=== PATIENT | female | born 1930 | race Hispanic/Latino ===

== ENCOUNTER 2018-03-06 05:36 | Day surgery (SDC) | payer OTHER, MEDICARE ==
[2018-03-06] VITALS (8 sets, daily range): BP systolic 115–159; BP diastolic 39–67
[~2018-03-06] VITALS: Ht 152.4 cm; Wt 54.5 kg
[~2018-03-06 05:36] MED LIST: LISI10TA7 PO
[2018-03-06] MEDS ORDERED: SODIUM CHLORIDE 0.9% 1000ML 1,000 ML IV ONE (05:43)
[2018-03-06] MEDS ORDERED: IOHEXOL-350 50ML VIAL IV ONE (05:59)
[2018-03-06] MEDS ORDERED: PROPOFOL 10 MG/ML 20ML VIAL IV ONE ×2 (06:17)
[2018-03-06] MEDS ORDERED: SUCCINYLCHOLINE CHLORIDE 20 MG/ML 10 ML VIAL ONE (06:17)
== END 2018-03-06 08:00 | disposition home or self-care (01) ==
LOC: ENDO 05:36 → DAH 05:36 → ENDO 08:00
PROVIDERS: ATTEND Internal Medicine
DX: Z46.59 Encounter for fitting and adjustment of other gastrointestinal appliance and device (principal); K83.1 Obstruction of bile duct; E78.5 Hyperlipidemia, unspecified; I10 Essential (primary) hypertension; Z86.73 Personal history of transient ischemic attack (TIA), and cerebral infarction without residual deficits; M19.90 Unspecified osteoarthritis, unspecified site; R17 Unspecified jaundice; Z79.899 Other long term (current) drug therapy; R00.1 Bradycardia, unspecified
CPT/HCPCS: 43276; 74330; 93005; A4606; C1769; C1773; C1874; J0330; J2704; J7030; Q9967